=== PATIENT | male | born 1990 | race Hispanic/Latino ===

== ENCOUNTER 2024-08-03 13:09 | Emergency (ER) | payer SELFPAY ==
[~2024-08-03] VITALS: Ht 188 cm; Wt 99.8 kg
--- NOTE | 2024-08-03 13:14 | NUR ---
SEEN BY DR. POTTS NOW
--- NOTE | 2024-08-03 13:18 | ERN ---
General Chief Complaint: Chest Pain Stated Complaint: CHEST PAINS,FOOT PAIN Time Seen by MD: 13:10 History of Present Illness Initial Comments 34-year-old male presents for chest pain. He reports that he woke up this morning with some chest discomfort shortness of pressure. He also feels a bit of shortness of breath and dizziness. He feels weak in his legs. He reports that it comes and goes. He has never felt this before. He feels nausea without vomiting. No fevers sore throat cough congestion vomiting or diarrhea. No history of cardiac disease. Denies drug use or alcohol abuse. Medical history: Hypertension, dyslipidemia No surgical history Allergies: Coded Allergies: No Known Drug Allergies (Unverified Allergy, Unknown, 08/03/24) ROS Dictation CONSTITUTIONAL: No chills, no fever, no weakness, no diaphoresis, no malaise. HEAD/FACE: No signs of trauma. EENT: No eye pain, no blurred vision, no tearing, no double vision, no ear pain, no ear discharge, no nose pain, no nasal congestion, no throat pain, no throat swelling, no mouth pain. RESPIRATORY: No cough, no orthopnea, no SOB, no stridor, no wheezing. CARDIOVASCULAR: No chest pain dyspnea GASTROINTESTINAL/ABDOMINAL: No abdominal pain, no constipation, no diarrhea, no nausea, no vomiting. GENITOURINARY: No abnormal discharge, no dysuria, no frequent urination, no hem aturia. No complaints of pain in the genitals. MUSCULOSKELETAL: No back pain, no gout, no joint pain, no joint swelling, no mu scle pain, no muscle stiffness, no neck pain. INTEGUMENTARY: No change in color, no change in hair/nails, no dryness, no lesion, no lumps, no rash. NEUROLOGICAL/PSYCH: No anxiety, not depressed, no emotional problem, no headache, no numbness, no pre-existing deficit, no history of seizures, no tremors, no weakness. HEMATOLOGIC/LYMPHATIC: Not anemic, no history of blood clots, no apparent bleeding, no bruising, glands not swollen. All Systems Negative, Except as Noted. Physical Exam Physical Exam Dictation VITAL SIGNS: Reviewed. GENERAL APPEARANCE: Alert, oriented x3, no acute distress, obese. HEAD AND FACE: Non-traumatic. EYES: PERRL, pink conjunctivas, eyelid no trauma, anterior chamber clear. EARS: Pinnas intact and no signs of trauma or erythema. Ear canals clear and no discharge. TMs no erythema. NOSE: No discharge, no bleeding. OROPHARYNX: Mouth normal, teeth no caries, tongue pink. Pharynx clear, no erythema. Tonsils no exudates, no abscesses noted. Mucous membrane moist. NECK: Supple, non-tender, no thyromegaly, no masses, no JVD, no bruits. BREAST: Deferred. CHEST: No tenderness, no crepitus, no paradoxical movement, no retractions. LUNGS: Clear, well-ventilated, symmetric, no rales, no wheezing, no rhonchi, no stridor, good breath sounds bilaterally. HEART: Regular rate, regular rhythm, no murmur, no gallops. VASCULAR: No peripheral edema. ABDOMEN: Soft, positive bowel sounds, nondistended, no guarding, nontender, no rebound, no masses no hepatomegaly, no splenomegaly, no Duvall's sign, no hernias. RECTAL: Deferred. GENITAL: Deferred. NEUROLOGICAL: Normal speech, gross motor function intact, gross sensory function intact. MUSCULOSKELETAL: Neck nontender, full range of motion, back nontender, full range of motion. EXTREMITIES: Nontender, full range of motion. SKIN: Color pink, dry, no turgor, no rash, no lacerations, no abrasions, no contusions. LYMPHATICS: Deferred. Results Laboratory and Microbiology Lab and Micro Result Laboratory Tests Test 08/03/24 13:33 White Blood Count 5.4 K/uL (4.8-10.8) Red Blood Count 5.37 MIL/uL (4.50-6.20) Hemoglobin 15.5 g/dL (14.0-18.0) Hematocrit 45.2 % (42-54) Mean Corpuscular Volume 84.2 fL (79-99) Mean Corpuscular Hemoglobin 28.9 pg (27.0-33.0) Mean Corpuscular Hemoglobin Concent 34.3 g/dL (32.0-36.0) Red Cell Distribution Width 13.0 % (11.0-15.5) Platelet Count 216 K/uL (130-400) Mean Platelet Volume 11.5 fL (7.5-10.5) H Immature Granulocyte % (Auto) 0.2 % (0-1) Neutrophils (%) (Auto) 52.9 % (40.0-77.0) Lymphocytes (%) (Auto) 38.9 % (21.0-51.0) Monocytes (%) (Auto) 6.5 % (3.0-13.0) Eosinophils (%) (Auto) 0.9 % (0.0-8.0) Basophils (%) (Auto) 0.6 % (0.0-5.0) Neutrophils # (Auto) 2.9 K/uL (1.8-7.7) Lymphocytes # (Auto) 2.1 K/uL (1.0-4.8) Monocytes # (Auto) 0.4 K/uL (0.1-1.0) Eosinophils # (Auto) 0.05 K/uL (0.00-0.70) Basophils # (Auto) 0.03 K/uL (0.00-0.20) Absolute Immature Granulocyte (auto 0.01 K/uL (0-1) Nucleated Red Blood Cells 0.0 % (0.0-0.19) Sodium Level 138 mmol/L (136-145) Potassium Level 3.5 mmol/L (3.5-5.1) Chloride Level 100 mmol/L (101-111) L Carbon Dioxide Level 31 mmol/L (21-32) Blood Urea Nitrogen 11 mg/dL (7-18) Creatinine 1.1 mg/dL (0.5-1.3) Glomerular Filtration Rate Calc 90 mL/min (>90) Random Glucose 119 mg/dL (70-105) H Total Calcium 9.1 mg/dL (8.5-10.1) Magnesium Level 2.30 mg/dL (1.80-2.40) Troponin I High Sensitivity < 4 ng/L (4-75) L B-Type Natriuretic Peptide < 5 pg/mL (0-100) MDM CC: Chest pain, weakness, dizziness, dyspnea Historian: Patient Comorbidities: Hypertension, dyslipidemia Limitations by social determinants of health: None Differential diagnosis: ACS, drug abuse, electrolyte abnormality, dehydration, pneumonia, TID, PE, other. Vital signs: Stable remained stable in the ER EKG: Sinus rhythm, rate of 89, normal axis, good R-wave progression, intervals are stable. No STEMI. Independently interpreted by me. Vital signs: Blood pressure 170/106, otherwise unremarkable. Clinical exam: Unremarkable. No signs of heart failure respiratory distress. Labs (independently ordered & interpreted by me): CBC is normal. Chemistry panel is normal. Magnesium normal. Troponin normal. BNP normal. CXR (independently interpreted by me): No cardiomegaly no pleural effusions no focal infiltrates no pneumothorax no congestion no abnormalities. Treatment in the ER: 1 L normal saline. Patient has a heart score of two with a normal troponin. PERC negative. No signs of TID. No signs of SIRS or sepsis. Very low suspicion for ACS at this time. We will discharge to PCP follow up. ED Course Orders Procedure Category Date Status Time Cbc With Differential LAB 08/03/24 Complete 13:14 B-Type Natriuretic LAB 08/03/24 Complete Peptide 13:14 Chest 1vw RAD 08/03/24 Taken 13:14 12 Lead Ekg Tracing- EKG 08/03/24 Complete Technical 13:14 0.9%Nacl 1000ml (Ns PHA 08/03/24 Complete 1000ml) 13:30 Magnesium LAB 08/03/24 Complete 13:14 Troponin I High LAB 08/03/24 Complete Sensitivity 13:14 Basic Metabolic Panel LAB 08/03/24 Complete 13:14 Current Medications Medications (Trade) Dose Ordered Sig/Matteo Route PRN Reason Start Time Stop Time Status Last Admin Dose Admin Sodium Chloride 1,000 ml @ 0 mls/hr ONCE ONCE IV 08/03/24 13:30 08/03/24 13:31 DC 08/03/24 13:39 Vital Signs Date Time Temp Pulse Resp B/P (MAP) Pulse Ox O2 Delivery O2 Flow Rate FiO2 08/03/24 13:15 98.1 94 16 170/106 100 Room Air 08/03/24 13:09 98.2 97 18 132/63 100 Room Air* 0 21 DX & DISP Disposition: Discharge Departure Impression: Primary Impression: Chest pain with low risk for cardiac etiology Additional Impression: Mild dehydration Condition: Stable Additional Instructions: There are no dangerous findings on your workup here today. Your EKG is normal. Your chest x-ray is normal. Your blood work (CBC, BMP, magnesium level, BNP, troponin) is normal. You are low risk for cardiac disease, but not no risk. I recommend that you follow up with your primary doctor regarding your symptoms. You received 1 L of normal saline here in the ER. Please follow up with an outpatient provider. Return to the emergency department as needed. Referrals: SELF,REFERRAL (PCP) CHAVA POTTS DO Aug 03, 2024 13:18
--- NOTE | 2024-08-03 13:35 | EKG ---
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
[2024-08-03] MEDS: 0.9%NACL 1000ML 1,000 ML IV ONE (13:39)
[2024-08-03 13:53] LABS: BASOPHILS # (AUTO) 0.03 K/uL (0.00-0.20); BASOPHILS % (AUTO) 0.6 % (0.0-5.0); EOSINOPHILS # (AUTO) 0.05 K/uL (0.00-0.70); EOSINOPHILS % (AUTO) 0.9 % (0.0-8.0); HEMATOCRIT 45.2 % (42-54); IMMATURE GRANULOCYTE ABSOLUTE 0.01 K/uL (0-1); LYMPHOCYTES # (AUTO) 2.1 K/uL (1.0-4.8); LYMPHOCYTES % (AUTO) 38.9 % (21.0-51.0); MEAN CORPUSCULAR HEMOGLOBIN 28.9 pg (27.0-33.0); MEAN CORPUSCULAR HGB CONC 34.3 g/dL (32.0-36.0); MEAN CORPUSCULAR VOLUME 84.2 fL (79-99); MONOCYTES # (AUTO) 0.4 K/uL (0.1-1.0); MONOCYTES % (AUTO) 6.5 % (3.0-13.0); NEUTROPHILS # (AUTO) 2.9 K/uL (1.8-7.7); NEUTROPHILS % (AUTO) 52.9 % (40.0-77.0); PLATELET COUNT (AUTO) 216 K/uL (130-400); RED BLOOD CELL COUNT(AUTO) 5.37 MIL/uL (4.50-6.20); WHITE BLOOD COUNT (AUTO) 5.4 K/uL (4.8-10.8)
[2024-08-03 13:56] LABS: CREATININE 1.1 mg/dL (0.5-1.3); MAGNESIUM 2.3 mg/dL (1.80-2.40); POTASSIUM 3.5 mmol/L (3.5-5.1)
[2024-08-03 14:19] LABS: B-TYPE NATRIURETIC PEPTIDE < 5 pg/mL (0-100)
[2024-08-03 14:28] VITALS: BP 161/74; PULSE 92; RESP 16; TEMP 98.4; O2SAT 100
--- NOTE | 2024-08-03 14:40 | HMCIMG ---
CHEST 1VW REASON: CP COMPARISON: None. FINDINGS: Single view of the chest was obtained. Lungs are clear. Heart size is normal. There is no pulmonary vascular congestion. Mediastinum and bony thorax appear unremarkable. IMPRESSION: 1. Normal single view chest x-ray.
== END 2024-08-03 14:50 | disposition home or self-care (01) ==
LOC: EDH 13:09
DX: R07.89 Other chest pain (principal); E86.0 Dehydration; I10 Essential (primary) hypertension
CPT/HCPCS: 99285; 96360; 71045; 83735; 84484; 80048; 83880; 85025; 36415; 93005; J7030